=== PATIENT | female | born 1995 | race Caucasian/White ===

== ENCOUNTER 2017-08-15 18:48 | Emergency (ER) | payer OTHER ==
[2017-08-15 19:22] VITALS: TEMP 99
[2017-08-15] MEDS ORDERED: KETOROLAC 30 MG/1 ML SDV IM ONE (19:32)
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
[2017-08-15 21:29] VITALS: BP 109/73; PULSE 58; RESP 16; O2SAT 95
== END 2017-08-15 21:28 | disposition home or self-care (01) ==
DX: S06.0X9A Concussion with loss of consciousness of unspecified duration, initial encounter (principal); S60.511A Abrasion of right hand, initial encounter; S80.212A Abrasion, left knee, initial encounter; J45.909 Unspecified asthma, uncomplicated; V11.4XXA Pedal cycle driver injured in collision with other pedal cycle in traffic accident, initial encounter; Y92.410 Unspecified street and highway as the place of occurrence of the external cause; Y93.55 Activity, bike riding
CPT/HCPCS: J1885